=== PATIENT | female | born 1970 | race Caucasian/White ===

== ENCOUNTER 2017-06-26 14:26 | Outpatient (CLI) | payer OTHER ==
[~2017-06-26 14:26] MED LIST: PERCOCET 5/3251 TAB PO
== END 2017-06-26 14:37 | disposition home or self-care (01) ==
LOC: SONOGRAMA 14:26
DX: N64.4 Mastodynia (principal); N60.11 Diffuse cystic mastopathy of right breast; N60.12 Diffuse cystic mastopathy of left breast